=== PATIENT | male | born 1935 | race Caucasian/White ===

== ENCOUNTER → 2019-11-24 09:18 | Outpatient (BNVA) | payer SELFPAY | PROVIDERS: Family Provider Family Medicine; PCP Family Medicine; Visit Provider Family Medicine | DX: I10 Essential (primary) hypertension (principal); E83.52 Hypercalcemia | CPT/HCPCS: 80053 ==

== ENCOUNTER → 2020-09-19 08:35 | Outpatient (BNVA) | payer MEDICARE, SELFPAY | PROVIDERS: Family Provider Family Medicine; PCP Family Medicine; Visit Provider Family Medicine | DX: E83.52 Hypercalcemia (principal); I10 Essential (primary) hypertension; I95.1 Orthostatic hypotension | CPT/HCPCS: 80053 ==

== ENCOUNTER → 2020-10-19 09:21 | Outpatient (BNVA) | payer MEDICARE, SELFPAY | PROVIDERS: Family Provider Family Medicine; PCP Family Medicine; Visit Provider Family Medicine | DX: N18.9 Chronic kidney disease, unspecified (principal) | CPT/HCPCS: 80048 ==

== ENCOUNTER → 2021-02-08 09:15 | Outpatient (BNVA) | payer MEDICARE, SELFPAY | PROVIDERS: Family Provider Family Medicine; PCP Family Medicine; Visit Provider Family Medicine | DX: N18.4 Chronic kidney disease, stage 4 (severe) (principal) | CPT/HCPCS: 80053; 81000; 85025 ==

== ENCOUNTER → 2021-12-03 13:30 | Outpatient (BNVA) | payer MEDICARE, SELFPAY | PROVIDERS: Family Provider Family Medicine; PCP Family Medicine; Visit Provider Family Medicine | DX: I10 Essential (primary) hypertension (principal); E83.52 Hypercalcemia; N18.4 Chronic kidney disease, stage 4 (severe); K59.04 Chronic idiopathic constipation; Z72.0 Tobacco use | CPT/HCPCS: 80053 ==

== ENCOUNTER → 2022-11-24 09:44 | Outpatient (BNVA) | payer MEDICARE, SELFPAY | PROVIDERS: Family Provider Family Medicine; PCP Family Medicine; Visit Provider Family Medicine | DX: I10 Essential (primary) hypertension (principal); E83.52 Hypercalcemia; Z72.0 Tobacco use; N18.4 Chronic kidney disease, stage 4 (severe); K59.04 Chronic idiopathic constipation; J30.2 Other seasonal allergic rhinitis | CPT/HCPCS: 80053 ==

== ENCOUNTER → 2023-11-30 10:30 | Outpatient (BNVA) | payer MEDICARE, SELFPAY | PROVIDERS: Family Provider Family Medicine; PCP Family Medicine; Visit Provider Family Medicine | DX: E83.52 Hypercalcemia (principal); I12.9 Hypertensive chronic kidney disease with stage 1 through stage 4 chronic kidney disease, or unspecified chronic kidney disease; N18.4 Chronic kidney disease, stage 4 (severe) | CPT/HCPCS: 80053 ==

== ENCOUNTER → 2024-01-08 10:45 | Outpatient (BNVA) | payer MEDICARE, SELFPAY | PROVIDERS: Family Provider Family Medicine; PCP Family Medicine; Visit Provider Emergency Medicine | DX: I10 Essential (primary) hypertension (principal); Z72.0 Tobacco use; R63.4 Abnormal weight loss | CPT/HCPCS: 71046 ==